=== PATIENT | male | born 2000 | race Caucasian/White ===

== ENCOUNTER 2023-10-16 17:33 | Emergency (ER) | payer BC, OTHER, SELFPAY ==
[2023-10-16 17:37] VITALS: BP 131/86; PULSE 67; RESP 18; TEMP 36.4; O2SAT 100; BMI 19.5
--- NOTE | 2023-10-16 18:35 | ED.GENADUL1 ---
HPI - General Adult General Chief complaint: Abdominal Pain Stated complaint: ABD PAIN Time Seen by Provider: 10/16/23 17:42 Source: patient Mode of arrival: walk-in Limitations: no limitations History of Present Illness HPI narrative: Patient is a 23-year-old male who is presenting to the ER with Chief concern of umbilical hernia. Patient states that his whole life, he's had diarrhea in the morning and then normal stool throughout the day. Patient states last couple weeks is been feeling a small bulge above his umbilicus. Patient is concerned about hernia. Patient has been more gassy today. Patient does have intermittent abdominal cramping. No fever or chills. Patient is concerned about possible hernia in making it worse. Patient works in a factory. Patient normally lives 15-20 pounds a day, last week a few of his shift he was lifting 40 pounds consistently. Patient does not recall a specific injury where he could've caused himself an umbilicus hernia. All systems are negative except as noted/marked. All systems reviewed and otherwise negative. Nurses note and vital signs reviewed and patient is not hypoxic. General: The patient appears well and in no apparent distress. Patient is resting comfortably on cart. Patient is not toxic, lethargic, or listless Skin: Warm, dry, no pallor noted. There is no rash noted. No petechiae, purpura. Baseline Grayishs/blackish skin from work residue. Head: Normocephalic, atraumatic Eye: Normal conjunctiva, no drainage, EOMI. PERRL Ears, Nose, Mouth, and Throat: oral mucosa is moist. Nares patent. Mouth without vesicles. Cardiovascular: Regular Rate and Rhythm, no murmur, gallop, rub Respiratory: Patient is in no distress, no accessory muscle use, lungs are clear to auscultation, no wheezing, rales or rhonchi Back: non-tender, no CVA tenderness bilaterally to percussion. No CT LS midline pain GI: Patient has no evidence of umbilical hernia at this time, patient states that it has reduced and he does not feel the umbilical hernia either. Patient was examined in a supine position. Patient has a benign abdomen, bowel sounds ?4. Otherwise no tenderness to palpation, no masses appreciated. No rebound, guarding, or rigidity noted. No distention. Patient has a benign abdomen. Musculoskeletal: Patient has full range of motion of all of the extremities, no motor, sensory, or focal neurological deficits Neurological: A&O x4, normal speech Psychiatric: Cooperative Related Data Previous Rx's Medication Instructions Recorded ondansetron 4 mg disintegrating 4 mg PO Q4H PRN nausea and 10/16/23 tablet vomiting 3 days #6 tabs Allergies Allergy/AdvReac Type Severity Reaction Status Date / Time No Known Drug Allergies Allergy Verified 10/16/23 17:37 Exam Constitutional Vital Signs, click to edit/add: Last Vital Signs Temp 97.6 F 10/16/23 17:37 Pulse 67 10/16/23 17:37 Resp 18 10/16/23 17:37 BP 131/86 10/16/23 17:37 Pulse Ox 100 10/16/23 17:37 Course Vital Signs Vital signs: Vital Signs Temperature 97.6 F 10/16/23 17:37 Pulse Rate 67 10/16/23 17:37 Respiratory Rate 18 10/16/23 17:37 Blood Pressure 131/86 10/16/23 17:37 Pulse Oximetry 100 10/16/23 17:37 Temperature 97.6 F 10/16/23 17:37 Pulse Rate 67 10/16/23 17:37 Respiratory Rate 18 10/16/23 17:37 Blood Pressure 131/86 10/16/23 17:37 Pulse Oximetry 100 10/16/23 17:37 Medical Decision Making MDM Narrative Medical decision making narrative: Education was done at bedside on the umbilical hernia, treating constipation and following up with surgeon. Patient change his story somewhat from his initial HPI and states that lately he has been having diarrhea in the morning and has felt constipated throughout the day for the past several weeks. Education was given to patient on how to treat constipation at [facility]. Patient is given signs and symptoms of umbilical hernia, he was educated on strangulation and incarceration of hernias. Patient has no hernia present at this time. Patient will follow-up with surgeon. Work restrictions were given as well. No questions at discharge. Patient has a benign abdomen at this time, bowel sounds ?4, no pain on his abdominal exam. Discharge Plan Discharge Stand Alone Forms: Work/School Release, Portal Instructions Chief Complaint: Abdominal Pain Clinical Impression: Hernia, umbilical Patient Disposition: Home, Self-Care Time of Disposition Decision: 18:34 Condition: Fair Prescriptions / Home Meds: New ondansetron 4 mg tablet,disintegrating 4 mg PO Q4H PRN (Reason: nausea and vomiting) 3 Days Qty: 6 0RF Instructions: Umbilical Hernia (ED) Additional Instructions: Work restrictions given, reduce umbilical hernia when it occurs again. For constipation, increase fluids at home, apple juice, prune juice, increase fluids. Use MiraLAX twice a day for the next 2 or 3 days to start getting soft stool. If you are having diarrhea, the watery stool is going around the hard stool, therefore constipation could be an etiology of your diarrhea Use [id number] magnesium citrate bottles, 1 or 2 bottles a day for the next 2 days to help with significant bowel prep and increased stooling. Heavy lifting, constipation will most likely make umbilical hernia worse. We have referred you to a surgeon Dr Goode to follow-up for additional therapy and care. Referrals: Marciano Goode MD [Physician] - 1 week Physician,Non-StaffMD [Primary Care Provider] - 1 week Discharge Date/Time: 10/16/23 18:53
== END 2023-10-16 18:53 | disposition home or self-care (01) ==
PROVIDERS: Emergency Provider Emergency Medicine; Family Provider Family Medicine
DX: K42.9 Umbilical hernia without obstruction or gangrene (principal)
CPT/HCPCS: 99283

== ENCOUNTER 2023-11-08 13:59 | Outpatient (OUT) | payer BC, OTHER, SELFPAY ==
[2023-11-08 15:05] LABS: Basophils Absolute Auto 0.1 10^3/uL (0.0-0.1); Basophils Percent Auto 1.2 % (0.2-2.0); Eosinophils Absolute Auto 0.4 10^3/uL (0.0-0.7); Eosinophils Percent Auto 4.1 % (0.9-7.0); Hematocrit 43.6 % (42.0-54.0); Hemoglobin 14.6 g/dL (14.0-18.0); Immature Granulocytes Abs Auto 0.02 10^3/uL (0.00-0.03); Immature Granulocytes Pct Auto 0.2 % (0.0-0.5); Lymphocytes Absolute Auto 2.9 10^3/uL (1.2-3.8); Lymphocytes Percent Auto 31.1 % (20.5-60.0); Mean Corpuscular HGB Conc 33.5 g/dL (29.9-35.2); Mean Corpuscular Hemoglobin 29.8 pg (25.9-34.0); Mean Platelet Volume 9.9 fL (9.5-13.5); Monocytes Absolute Auto 0.7 10^3/uL (0.3-0.8); Monocytes Percent Auto 7.6 % (1.7-12.0); Neutrophils Absolute Auto 5.1 10^3/uL (1.4-6.5); Neutrophils Percent Auto 55.8 % (43.0-75.0); Platelet Count 369 10^3/uL (150-450); Red Cell Distribution Width 11.6 % (11.0-15.0); White Blood Count 9.2 10^3/uL (4.0-11.0)
== END 2023-11-08 14:00 | disposition home or self-care (01) ==
LOC: PST 14:00
PROVIDERS: Family Provider Family Medicine; Visit Provider Surgery
DX: Z01.812 Encounter for preprocedural laboratory examination (principal); K42.9 Umbilical hernia without obstruction or gangrene
CPT/HCPCS: 36415; 85025

== ENCOUNTER 2023-11-11 06:50 | Outpatient (OUT) | payer BC, OTHER, SELFPAY ==
--- OUTSIDE RECORDS SUMMARY | 2023-11-11 06:53 | XMS_ITS | CCD ---
Author Organization [facility] Care Team Providers Care Foot Worker Name Role Phone Astrid Gloria Unavailable Unavailable Trausch Unavailable Unavailable Abdi Black Unavailable Unavailable Katie Hugo Unavailable Unavailable Primary Care Provider Unavailabl e Allergies Allergy Classification Reported Allergen(s) Allergy Type Date of Onset Reaction(s) Facility (3 sources) Cat Allergy to substance (disorder) [facility] Work Phone: (3 sources) Dog Allergy to substance (disorder) [facility] Work Phone: (3 sources) -No Environmental Allergies Allergy to substance (disorder) [facility] Work Phone: (3 sources) -No Known Food Allergies Allergy to substance (disorder) [facility] Work Phone: (3 sources) NO KNOWN DRUG ALLERGIES Allergy to substance (disorder) [facility] Work Phone: Medications Current Medications Medication Drug Class(es) Dates Sig (Normalized) Sig (Original) amoxicillin 500 mg oral capsule (1 source) Penicillin-class Antibacterial Start: 09-16-2023 take 500 mg by mouth three times daily Amoxicillin Active 500 MG PO Three times daily 30 September 16, 2023 12:00am cetirizine hydrochloride 10 mg oral tablet (1 source) Histamine-1 Receptor Antagonist take 1 tablet by mouth once daily as needed cetirizine (ZyrTEC) 10 mg tablet Take 1 tablet (10 mg total) by mouth daily as needed for allergies. 0 Active hydrocortisone 10 mg/ml / neomycin 3.5 mg/ml / polymyxin b 63621 unt/ml otic suspension (1 source) Aminoglycoside Antibacterial, Polymyxin-class Antibacterial, Corticosteroid Start: 09-16-2023 Neomycin-Polymyx in-Hc Active 3 DROPS OTIC Three times daily September 16, 2023 12:00am right ear Completed/Discontinued Medications Medication Drug Class(es) Dates Sig (Normalized) Sig (Original) dexamethasone 1 mg/ml / neomycin 3.5 mg/ml / polymyxin b 79351 unt/ml ophthalmic suspension (2 sources) Aminoglycoside Antibacterial, Polymyxin-class Antibacterial, Corticosteroid Start: 01-15-2018 take 1 drop(s) into the eye(s) every four hours neomycin-polymyx in B-dexameth 3.5mg/mL-10,000 unit/mL-0.1 % ophthalmic (eye) drops,suspension 01/15/2018 instill 1 drop into both eyes by ophthalmic route every 4 hours Start: 01-15-2018 take 1 drop(s) into the eye(s) every four hours neomycin-polymyxin B-dexameth 3.5mg/mL-10,000 unit/mL-0.1 % ophthalmic (eye) drops,suspension 01/15/2018 instill 1 drop into both eyes by ophthalmic route every 4 hours FLUoxetine 20 mg oral capsule (3 sources) Serotonin Reuptake Inhibitor Start: 10-09-2017 End: 01-15-2018 take 1 capsule by mouth once daily fluoxetine 20 mg oral capsule 10/09/2017 01/15/2018 take 1 capsule (20 mg) by oral route once daily fluticasone propionate 0.05 mg/actuat metered dose nasal spray (3 sources) Corticosteroid Start: 08-23-2017 fluticasone 50 mcg/actuation nasal spray,suspension 08/23/2017 spray 1 spray (50 mcg) in each nostril by intranasal route once daily Problems Problem Classification Problem Date Documented Date Episodic/Chronic Abdominal hernia (1 source) Umbilical hernia; Translations: [Umbilical hernia without obstruction or gangrene] 10-30-2023 Episodic Anxiety disorders (3 sources) Generalized anxiety disorder; Translations: [VANGIE (generalized anxiety disorder)] Chronic Immunizations and screening for infectious disease (2 sources) Contact with and (suspected) exposure to other viral communicable diseases; Translations: [Contact with and (suspected) exposure to other viral communicable diseases] Episodic Influenza (1 source) Influenza due to other identified influenza virus with other respiratory manifestations Episodic Open wounds of extremities (1 source) Laceration with foreign body of left hand, initial encounter; Translations: [Laceration with foreign body of left hand, initial encounter] Onset: 07-20-2018 Episodic Other ear and sense organ disorders (1 source) Otitis externa; Translations: [Unspecified otitis externa, right ear] 09-16-2023 Chronic Other ear and sense organ disorders (1 source) Unspecified otitis externa, right ear; Translations: [Infective otitis externa, unspecified] 09-16-2023 Chronic Other ear and sense organ disorders (1 source) Impacted cerumen; Translations: [Impacted cerumen, right ear] 09-16-2023 Episodic Other ear and sense organ disorders (1 source) Impacted cerumen, right ear; Translations: [Impacted cerumen] 09-16-2023 Episodic Otitis media and related conditions (2 sources) Otitis media of right ear; Translations: [Otitis media, unspecified, right ear] 09-16-2023 Episodic Substance-related disorders (1 source) Cannabis misuse; Translations: [Cannabis use, unspecified, uncomplicated] 10-30-2023 Episodic Results Test Name Value Interpretation Reference Range Facil ity COVID/FLU RT-PCRon SARS-CoV-2 (COVID-19) RNA NENO+probe Ql (Unsp spec) Negative [facility] Other COVID/FLU RT-PCR Positive [facility] Other COVID/FLU RT-PCR Negative [facility] Other Otheron 01-15-2018 0= N/A Invalid Interpretation Code [facility] 0=No Invalid Interpretation Code [facility] 0-N/A Invalid Interpretation Code [facility] 1=Controlled Invalid Interpretation Code [facility] reducing depressed mood Invalid Interpretation Code [facility] 0 Invalid Interpretation Code [facility] 1 Invalid Interpretation Code [facility] Risk Level 1=3 or < Invalid Interpretation Code [facility] Otheron 10-09-2017 1 Invalid Interpretation Code [facility] Vital Signs Date Time Vital Sign Value Performing Clinician Facility 10-30-2023 09:25-0400 Body height 172.7 cm Justin Nogueiradewayne STONE Work Phone: [facility] 10-30-2023 09:25-0400 Body mass index (BMI) [Ratio] 19.55 kg/m2 Justin Jerodewayne STONE Work Phone: [facility] 10-30-2023 09:25-0400 Body weight 58.33 kg Justin Coreas DO Work Phone: [facility] 10-30-2023 09:25-0400 Diastolic blood pressure 77 mm[Hg] Justin Russel STONE Work Phone: [facility] 10-30-2023 09:25-0400 Heart rate 78 /min Justin Jeroleeannenavdeep Work Phone: [facility] 10-30-2023 09:25-0400 Systolic blood pressure 116 mm[Hg] Justin Coreas DO Work Phone: [facility] 09-16-2023 10:54-0500 Body height 172.72 cm [facility] 09-16-2023 10:54-0500 Body mass index (BMI) [Ratio] 20.5 kg/m2 [facility] 09-16-2023 10:54-0500 Body temperature 97.3 [degF] [facility] 09-16-2023 10:54-0500 Body weight 61.23 kg [facility] 09-16-2023 10:54-0500 Heart rate 68 /min [facility] 09-16-2023 10:54-0500 Respiratory rate 18 /min [facility] 09-16-2023 10:54-0500 SaO2% (BldA) [Mass fraction] 99 % [facility] 07-18-2022 14:45-0500 Body height 175.26 cm Katie Hugo Other [facility] Other 07-18-2022 14:45-0500 Body mass index (BMI) [Ratio] 19.2 kg/m2 Katie Hugo Other [facility] Other 07-18-2022 14:45-0500 Body temperature 99.7 [degF] Katie Garciamond Other [facility] Other 07-18-2022 14:45-0500 Body weight 58.97 kg Katie Hugo Other [facility] Other 07-18-2022 14:45-0500 Diastolic blood pressure 56 mm[Hg] Katie Hugo Other [facility] Other 07-18-2022 14:45-0500 Respiratory rate 20 /min Katie Hugo Other [facility] Other 07-18-2022 14:45-0500 SaO2% (BldA) [Mass fraction] 99 % Katie Hugo Other [facility] Other 07-18-2022 14:45-0500 Systolic blood pressure 95 mm[Hg] Katie Garciamond Other [facility] Other 01-15-2018 10:06-0400 BMI (Body Mass Index) 20.01 kg/m2 [facility] 01-15-2018 10:06-0400 Body Temperature 98.7 [degF] [facility] 01-15-2018 10:06-0400 BP Diastolic 84 mm[Hg] Astrid StayTuned [facility] 01-15-2018 10:06-0400 BP Systolic 124 mm[Hg] [facility] 01-15-[facility] 10:06-0400 BSA (Body Surface Area) 1.[address] [facility] 01-15-2018 10:06-0400 Height 180.[address] [facility] 01-15-2018 10:06-0400 Pulse (Heart Rate) 110 /min Astrid [facility] 01-15-2018 10:06-0400 Pulse Oximetry 99 % Astrid [facility] 01-15-2018 10:06-0400 Respiratory Rate 18 /min [facility] 01-15-2018 10:06-0400 [address] 65[address] [facility] 10-09-2017 10:10-0400 BMI (Body Mass Index) 19.11 kg/m2 Astrid [facility] 10-09-2017 10:10-0400 Body Temperature 98.3 [degF] Astrid [facility] 10-09-2017 10:10-0400 BP Diastolic 68 mm[Hg] [facility] 10-09-2017 10:10-0400 BP Systolic 110 mm[Hg] [facility] 10-09-2017 10:10-0400 BSA (Body Surface Area) 1.[address] [facility] 10-09-2017 10:10-0400 Height 180.[address] [facility] 10-09-2017 10:10-0400 Pulse (Heart Rate) 82 /min [facility] 10-09-2017 10:10-0400 Pulse Oximetry 98 % Astrid Gloria [facility] 10-09-2017 10:10-0400 Respiratory Rate 18 /min Astrid Gloria [facility] 10-09-2017 10:10-0400 Weight 62.14 kg Astridgordon Gloria [facility] 09-06-2017 09:02-0500 BMI (Body Mass Index) 18.69 kg/m2 Astridgordon Gloria [facility] 09-06-2017 09:02-0500 Body Temperature 99.4 [degF] Astrid Gloria [facility] 09-06-2017 09:02-0500 BP Diastolic 88 mm[Hg] [facility] 09-06-2017 09:02-0500 BP Systolic 138 mm[Hg] Astridgordon Gloria [facility] 09-06-2017 09:02-0500 BSA (Body Surface Area) 1.74 m2 Astridgordon Gloria [facility] 09-06-2017 09:02-0500 Height 180.34 cm Astridgordon Gloria [facility] 09-06-2017 09:02-0500 Pulse (Heart Rate) 118 /min Astrid Golria [facility] 09-06-2017 09:02-0500 Pulse Oximetry 95 % Astrid Gloria [facility] 09-06-2017 09:02-0500 Respiratory Rate 20 /min Astrid Glorai [facility] 09-06-2017 09:02-0500 Weight 60.78 kg Astridgordon Gloria [facility] 08-23-2017 09:52-0500 BMI (Body Mass Index) 19.44 kg/m2 [facility] 08-23-2017 09:52-0500 Body Temperature 98.8 [degF] [facility] 08-23-2017 09:52-0500 BP Diastolic 86 mm[Hg] [facility] 08-23-2017 09:52-0500 BP Systolic 123 mm[Hg] [facility] 08-23-2017 09:52-0500 BSA (Body Surface Area) 1.78 m2 [facility] 08-23-2017 09:52-0500 Height 180.34 cm [facility] 08-23-2017 09:52-0500 Pulse (Heart Rate) 89 /min [facility] 08-23-2017 09:52-0500 Pulse Oximetry 99 % [facility] 08-23-2017 09:52-0500 Respiratory Rate 20 /min [facility] 08-23-2017 09:52-0500 Weight 63.22 kg [facility] Encounters Encounter Date Encounter Type Care Provider Facility Start: 10-30-2023 End: 10-30-2023 Office outpatient new 45 minutes Justin Coreas DO Work Phone: [facility] Comment on above: Umbilical hernia wit hout obstruction and without gangrene (Primary Dx); Cannabis use, uncomplicated Start: 09-16-2023 End: 09-16-2023 ambulatory [facility] Work Phone: Start: 09-16-2023 End: 09-16-2023 Patient encounter procedure [facility] Work Phone: Start: 07-18-2022 End: 07-18-2022 ambulatory Katie Garciamond Other [facility] [employer] Other Start: 07-18-2022 Office outpatient vi sit 15 minutes Katie Hugo [facility] Start: 07-20-2018 End: 07-20-2018 Emergency department patient visit [facility] Start: 01-15-2018 Behavioral Health Astrid mccain Other [facility] Start: 01-15-2018 Medical Abdi Black Other [facility] Start: 01-15-2018 Office outpatient vi sit 15 minutes Abdi Black Other [facility] Start: 10-09-2017 Behavioral Health Norm dupree Other [facility] Start: 10-09-2017 Office outpatient vi sit 15 minutes Abdi Black Other [facility] Start: 09-06-2017 Behavioral Health Norm dupree Other [facility] Start: 09-06-2017 Office outpatient vi sit 15 minutes Abdi Black Other [facility] Start: 08-23-2017 Behavioral Health Norm dupree Other [facility] Start: 08-23-2017 Office outpatient vi sit 15 minutes Abdi Black Other [facility] Procedures Date Procedure Procedure Detail Performing Clinician Start: 07-20-2018 LACERATION REPAIR Start: 01-15-2018 PHQ9 Administered Radha Hummelabeba Start: 01-15-2018 Psychotherapy w/joana ent 30 minutes Astrid Maziers Start: 01-15-2018 SBIRT Negative Astrid M jefferyabeba Start: 10-09-2017 Psychotherapy w/joana ent 30 minutes Astrid Maziers Start: 10-09-2017 Pt-focused hlth risk assmt score doc stnd instrm Astrid Shaheediers Start: 09-06-2017 Psychotherapy w/joana ent 30 minutes Astrid Maziers Start: 08-23-2017 Psychotherapy w/joana ent 30 minutes Astrid Gloria Start: 08-23-2017 End: 08-23-2017 PHQ9 Administered Astrid Gloria Start: 08-23-2017 End: 08-23-2017 RAYOSEF Gloria Plan of Treatment Date Care Activity Detail Author Start: 10-29-2024 Adult BMI Screening Adult BMI Screen ing [facility] Start: 10-29-2024 Tobacco Screening Tobacco Screening [facility] Start: 03-31-2024 Influenza vaccination Influenza Vacc ine [facility] Start: 10-30-2023 End: 10-29-2024 CT Abdomen and Pelvis W contrast IV CT abdomen and pelvis with contrast Imaging Routine Umbilical hernia without obstruction and without gangrene Expected: 10/30/2023, Expires: 10/29/2024 [facility] Comment on above: Expected: 10/30/2023 , Expires: 10/29/2024 Start: 2018 DTaP,Tdap and Td Vaccines (1 - Tdap) DTaP,Tdap and Td Vaccines (1 - Tdap) [facility] Start: 2011 Depression Screening Depression Scre ening [facility] End: 10-29-2024 CBC panel - Blood by Automated count CBC without diff Lab Routine Umbilical hernia without obstruction and without gangrene 1 Occurrences starting 10/30/2023 until 10/29/2024 [facility] Comment on above: 1 Occurrences starti ng 10/30/2023 until 10/29/2024 End: 10-29-2024 Unlisted [facility] Procedure Unlisted [facility] Procedure Procedures Routine Umbilical hernia without obstruction and without gangrene 1 Occurrences starting 10/30/2023 until 10/29/2024 [facility] Work Phone: Comment on above: 1 Occurrences starti ng 10/30/2023 until 10/29/2024 Payers Date Payer Category Payer Private Health Insurance [facility] PLUS [id number] 2023-[facility] [phone] [address] [address] [place] [address] [id number] 2023 Unknown [place]/TRUST [id number] 2023-Present [phone] [address] [place] [address] [id number] 2017 Unknown [id number] Private Health Insurance [id number] Social History Date Type Detail Facility [facility] Start: Never smoker Health [facility] Start: 10-30-2023 Sex Assigned At N [facility] [employer] Other Start: 1999 Sex Assigned At Male F [facility] Start: 10-30-2023 Tobacco use and exposure Smokeless tobacco non-user [facility] Start: 10-30-2023 Alcohol intake Ex-drinker (finding) [facility] Start: 10-30-2023 History of Social function [facility] Within the past 12 months we worried whether our food would run out before we got money to buy more. Never True [facility] Start: 1999 Sex Assigned At Not on file P [facility] History of Present illness Narrative 10-30-2023 Justin Coreas, DO - 10/30/2023 9:30 AM EDT Note Date & Type Note Facility 10-30-2023 History of Present illness Narrative Images from the original note were not included. [facility] [id number] [facility] [id number] CONSULT NOTE Erwin Vega 23 y.o. CHIEF COMPLAINT Chief Complaint Patient presents with Hernia Umbilical hernia, [facility] ER 10/16/23 Erwin Vega is a 23-year-old male who presents to the office with complaints of an umbilical hernia diagnosed when he went to the ED at the [facility] on October 15. 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 He has to lift parts onto a machine and he usually lifts 15-20 lb but that day he was lifting up to 40 lb. He complains of occasional nausea and 1 episode of emesis. His pain has been worse after coughing therefore he quit smoking weed 2 weeks ago due to the pain. Usually he smokes weed daily. He has been on light duty since that time. He denies any medical problems. MEDICATION Current Outpatient Medications: cetirizine (ZyrTEC) 10 mg tablet, Take 1 tablet (10 mg total) by mouth daily as needed for allergies., Disp: , Rfl: ALLERGY No Known Allergies MEDICAL HISTORY Past Medical History: Diagnosis Date Generalized anxiety disorder SURGICAL HISTORY Past Surgical History: Procedure Laterality Date ROOT CANAL Right 2022 SOCIAL HISTORY Social History Socioeconomic History Marital status: Single Spouse name: Not on file Number of children: Not on file Years of education: Not on file Highest education level: Not on file Occupational History Not on file Tobacco Use Smoking status: Never Smokeless tobacco: Never Vaping Use Vaping Use: Never used Substance and Sexual Activity Alcohol use: Not Currently Drug use: Not Currently Types: Marijuana Sexual activity: Defer Other Topics Concern Not on file Social History Narrative Not on file Social Determinants of Health Financial Resource Strain: Not on file Food Insecurity: Unknown (10/30/2023) Hunger Screening Food Insecurity - Worry: Never True Food Insecurity - Inability: Not on file Transportation Needs: Not on file Physical Activity: Not on file Stress: Not on file Social Connections: Not on file Interpersonal Safety: Not on file Housing Instability: Not on file FAMILY HISTORY Family History Problem Relation Age of Onset No Known Problems Mother No Known Problems Father REVIEW OF SYSTEMS: Constitutional: Denies fevers, denies recent illnesses. Eyes: Denies any vision changes. ENT: Denies any throat pain. Neck: Denies any neck pain. Cardiovascular denies chest pain. Denies palpitations. Respiratory: Denies shortness of breath, denies cough, denies history of asthma or any other pulmonary illnesses. Gastrointestinal: Negative for abdominal pain, nausea, melena, hematochezia, weight loss, change in bowel habits or weight loss or emesis. Genitourinary negative for dysuria hematuria urinary frequency or urgency. Musculoskeletal: Negative for extremity pains or joint discomfort. Neurologic: No change in sensation or paresthesias or history of seizure disorder skin: No rashes. Hematologic: No anemia. No purpura. No petechiae and no prolonged or excessive bleeding Allergic and immunologic: No pruritus. No swelling. Endocrine: No unexplained weight loss. No polydipsia. No polyuria. No polyphagia. PHYSICAL EXAM Constitutional: He is oriented to person, place, and time. Vital signs are normal. He appears well-developed and well-nourished. HEENT: Head: Normocephalic and atraumatic. Eyes: Conjunctivae, EOM and lids are normal. Neck: Trachea normal. Neck supple. No thyroid mass present. Cardiovascular: Normal rate and regular rhythm. Pulmonary/Chest: Effort normal and breath sounds normal. Abdominal: Soft. Small bulge at the umbilicus and above which reduces. He exhibits no distension and no mass. There is negative Hanna's sign. Musculoskeletal: Normal range of motion. Lymphadenopathy: He has no cervical adenopathy. He has no axillary adenopathy. Right: No inguinal and no supraclavicular adenopathy present. Left: No inguinal and no supraclavicular adenopathy present. Neurological: He is alert and oriented to person, place, and time. Skin: Skin is warm, dry and intact. Psychiatric: He has a normal mood and affect. His speech is normal and behavior is normal. Cognition and memory are normal. IMPRESSION 1. Umbilical hernia less than 1 cm without incarceration or gangrene 2. History of cannabis use daily which he quit 2 weeks ago due to coughing irritating the hernia. ASSESSMENT & PLAN Robotic umbilical hernia repair with mesh. Risks benefits alternatives to surgery may include infection, bleeding, bowel injury, blood clots to legs or lungs, recurrence of the hernia, pneumonia, heart attack, stroke and/or . He understood all the above and wished to proceed. He was encouraged to continue not smoking marijuana until has recovered from surgery and recovery could take 6 weeks. He would not be allowed to do lifting greater than 5 lb for 6 weeks but could go back to light duty after 2 weeks. He voiced understanding of all the above. Evaluation included: Preparing to see the patient (e.g., review of tests) Obtaining and/or reviewing separately obtained history Performing a medically appropriate examination and/or evaluation Counseling and educating the patient/family/caregiver Referring and communicating with other health healthcare interpreter Umbilical hernia without obstruction and without gangrene [K42.9] Justin Coreas DO This note was created with the assistance of a speech recognition program. While intending to generate a timely document that accurately reflects the content of the visit, no guarantee can be provided that every grammatical or spelling mistake has been or will be identified or corrected. Thank you for your understanding. documented in this encounter [facility] Note 10-30-2023 Addendum Note - Justni Coreas DO - 10/30/2023 9:30 AM EDT Note Date & Type Note Facility 10-30-2023 Miscellaneous Notes Addended by: JUSTIN COREAS on: 10/30/2023 12:51 PM Modules accepted: Orders documented in this encounter [facility] Clinical Note 10-30-2023 Addendum Note - Justin Coreas DO - 10/30/2023 9:30 AM EDT Note Date & Type Note Facility 10-30-2023 Note Addended by: JUSTIN COREAS on: 10/30/2023 12:51 PM Modules accepted: Orders [facility] Evaluation note 07-18-2022 Note Date & Type Note Facility 07-18-2022 Evaluation note Encounter Date Diagnosis Assessment Notes Jun, Contact with and (suspected) exposure to other viral communicable diseases (ICD-10 - Z20.828) Jun, Influenza A (ICD-10 - J10.1) Influenza: adult home care material was printed Drink plenty fluids, get plenty of rest. Take Tylenol or Motrin as needed for aches pains or fevers. Follow-up with your family physician if no improvement in 2 to 3 days. Should quarantine for 1 week after the onset of your symptoms of influenza. [facility] Other Evaluation note Note Date & Type Note Facility Evaluation note Diagnosis Onset Date Impacted cerumen, right ear acute Right otitis externa acute Right otitis media acute [facility] Work Phone: Evaluation note Note Date & Type Note Facility Evaluation note Diagnosis Umbilical hernia without obstruction and without gangrene- Primary Cannabis use, uncomplicated documented in this encounter [facility] History general Narrative - Reported Note Date & Type Note Facility History general Narrative - Reported Type Medical History anxiety [facility] Other Instructions Note Date & Type Note Facility Instructions Not on filedocumented in this en counter [facility] History of Past Illness Name Date of Onset Comments VANGIE (generalized anxiety disorder) Normal weight, pediatric, BM I 5th to 84th percentile for age Aug 23 2017 9:00AM Sinus pressure Aug 23 2017 9:00AM MDD (major depressive disorder) Aug 23 2017 9:00 AM Generalized anxiety disorder Aug 23 2017 9:41AM Persistent depressive disorder Aug 23 2017 9:41A M Normal weight, pediatric, BM I 5th to 84th percentile for age Sep 06 2017 8:08AM VANGIE (generalized anxiety disorder) Sep 06 2017 8: 08AM Persistent depressive disorder Sep 06 2017 8:39AM Generalized anxiety disorder Sep 06 2017 8:39AM Screening for diabetes mellitus Oct 09 2017 8:23 AM Normal weight, pediatric, BM I 5th to 84th percentile for age Oct 09 2017 8:23AM MDD (major depressive disorder) Oct 09 2017 8:23 AM Persistent depressive disorder Oct 09 2017 8:44A M Generalized anxiety disorder Oct 09 2017 8:44AM Name Date of Onset Comments VANGIE (generalized anxiety disorder) Normal weight, pediatric, BM I 5th to 84th percentile for age Aug 23 2017 9:00AM Sinus pressure Aug 23 2017 9:00AM MDD (major depressive disorder) Aug 23 2017 9:00 AM Generalized anxiety disorder Aug 23 2017 9:41AM Persistent depressive disorder Aug 23 2017 9:41A M Normal weight, pediatric, BM I 5th to 84th percentile for age Sep 06 2017 8:08AM VANGIE (generalized anxiety disorder) Sep 06 2017 8: 08AM Persistent depressive disorder Sep 06 2017 8:39AM Generalized anxiety disorder Sep 06 2017 8:39AM Screening for diabetes mellitus Oct 09 2017 8:23 AM Normal weight, pediatric, BM I 5th to 84th percentile for age Oct 09 2017 8:23AM MDD (major depressive disorder) Oct 09 2017 8:23 AM Persistent depressive disorder Oct 09 2017 8:44A M Generalized anxiety disorder Oct 09 2017 8:44AM Normal weight, pediatric, BM I 5th to 84th percentile for age Jan 15 2018 8:11AM Blepharitis Jan 15 2018 8:11AM VANGIE (generalized anxiety disorder) Jan 15 2018 8 :11AM Adjustment disorder with mixed anxiety and depre ssed mood Jan 15 2018 8:36AM Name Date of Onset Comments VANGIE (generalized anxiety disorder) Normal weight, pediatric, BM I 5th to 84th percentile for age Aug 23 2017 9:00AM Sinus pressure Aug 23 2017 9:00AM MDD (major depressive disorder) Aug 23 2017 9:00 AM Generalized anxiety disorder Aug 23 2017 9:41AM Persistent depressive disorder Aug 23 2017 9:41A M Normal weight, pediatric, BM I 5th to 84th percentile for age Sep 06 2017 8:08AM VANGIE (generalized anxiety disorder) Sep 06 2017 8: 08AM Persistent depressive disorder Sep 06 2017 8:39AM Generalized anxiety disorder Sep 06 2017 8:39AM Screening for diabetes mellitus Oct 09 2017 8:23 AM Normal weight, pediatric, BM I 5th to 84th percentile for age Oct 09 2017 8:23AM MDD (major depressive disorder) Oct 09 2017 8:23 AM Persistent depressive disorder Oct 09 2017 8:44A M Generalized anxiety disorder Oct 09 2017 8:44AM Normal weight, pediatric, BM I 5th to 84th percentile for age Jan 15 2018 8:11AM Blepharitis Jan 15 2018 8:11AM VANGIE (generalized anxiety disorder) Jan 15 2018 8 :11AM Summary Purpose Family History No Family History Records Found Advance Directives Advance Directive Response Recorded Date/ Time Advance Directives No August 10:47am Chief Complaint and Reason for Visit Chief Complaint Earache Reason for Visit Impacted cerumen, ri ght ear Right otitis externa Right otitis media Reason for Referral Specialty Diagnoses / Procedures Referred By Contac t Referred To Contact Diagnoses Umbilical hernia without obstruction and without gangrene Procedures CT abdomen and pelvis with contrast Justin Coreas, DO [address] [place] [address] Referral ID Status Reason Start Date Expiration Date V isits Requested Visits Authorized [id number] Pending Review 10/30/2023 10/29/2024 1 1 Specialty Diagnoses / Procedures Referred By Contac t Referred To Contact Diagnoses Umbilical hernia without obstruction and without gangrene Procedures Unlisted [facility] Procedure Justin Coreas, DO [address] [place] [address] Referral ID Status Reason Start Date Expiration Date V isits Requested Visits Authorized [id number] Pending Review 10/30/2023 10/29/2024 1 1 Additional Source Comments (unrecognized sect ion and content) No Status Records Found INFORMATION SOURCE (unrecogn ized section and content) DATE CREATED AUTHOR 07/24/2018 Sophia Maciaslynda Chen pital REASON FOR VISIT (unrecogniz ed section and content) Reason Comments Hernia Umbilical hernia, [facility] ER 10/16/23 Care Teams (unrecognized sec tion and content) Team Status: Active Member Role Status Dates PHYSICIAN NO FAMILY Primary Care Provider Active Team Status: Inactive Member Role Status Dates PHYSICIAN NO FAMILY Primary Care Provider Active Start: September 16, 2023 End: September 16, 2023 KENNY Ramires Attending Provider Active S tart: September 16, 2023 End: September 16, 2023 Goals (unrecognized section and content) Goals may be documented in a n alternate section FOR RECORDS PERTAINING TO PATIENTS WHO ARE OR HAVE BEEN ENROLLED IN A CHEMICAL DEPENDENCY/SUBSTANCEABUSE PROGRAM, SOME INFORMATION MAY BE OMITTED. This clinical summary was aggregated from multiple sources. Caution should be exercised in using it in the provision of clinical care. This summary normalizes information from multiple sources, and as a consequence, information in this document may materially change the coding, format and clinical context of patient data. In addition, data may be omitted in some cases. CLINICAL DECISIONS SHOULD BE BASED ON THE PRIMARY CLINICAL RECORDS. [email or web address] provides no warranty or guarantee of the accuracy or completeness of information in this document.
--- NOTE | 2023-11-11 07:05 | CT_ITS ---
[address] [address] Patient Name: VINAYAK AUSTIN MRN: [id number] date: 2000 Sex: M Assigned Patient Location: [facility] Current Patient Location: Accession/Order Number: [id number] Exam Date: 11/11/2023 08:08 Report Date: 11/13/2023 07:44 At the request of: JUSTIN COREAS Procedure: CT abdomen pelvis w con EXAMINATION: CT abdomen pelvis w con HISTORY: RULE OUT UMBILICAL HERNIA, ABDOMINAL PAIN, ACUTE COMPARISON: No relevant comparison available. TECHNIQUE: CT images were created with IV contrast. Axial, Coronal, and Sagittal images. Dose reduction techniques were achieved by using automated exposure control and/or adjustment of mA and/or kV according to patient size and/or use of iterative reconstruction technique. FINDINGS: LUNG BASES: No visible pulmonary or pleural disease. LIVER: No enlargement, atrophy, abnormal density, or significant focal lesion. BILIARY: No visible dilatation or calcification. PANCREAS: No lesion, fluid collection, ductal dilatation, or atrophy. SPLEEN: No enlargement or focal lesion. ADRENALS: No mass or enlargement. KIDNEYS: No mass, obstruction, or calcification. BOWEL/MESENTERY: Suture line gastric antrum. Nonobstructive bowel gas pattern AORTA/VASCULAR: No aneurysm or dissection. RETROPERITONEUM: No mass or adenopathy. LYMPH NODES: No adenopathy. URINARY BLADDER: Marked fluid distention of the urinary bladder PELVIC ORGANS: No visible mass. Pelvic organs appropriate for patient age. ABDOMINAL WALL: 2.2 x 0.8 cm ventral hernia containing mesenteric fat corresponding to the patient's palpable abnormality just above the level of the umbilicus BONES: No bony lesion or fracture. OTHER: Negative. CT/CT abdomen pelvis w con IMPRESSION: 2.2 cm periumbilical ventral hernia containing mesenteric fat corresponding to the patient's palpable abnormality Electronically authenticated by: LEANN ELIZABETH Date: 11/13/2023 07:44
== END 2023-11-11 06:51 | disposition home or self-care (01) ==
LOC: CT 06:51
PROVIDERS: Family Provider Family Medicine; Visit Provider Surgery
DX: K42.9 Umbilical hernia without obstruction or gangrene (principal)
CPT/HCPCS: 74177; Q9967

== ENCOUNTER 2023-11-15 06:02 | Day surgery (SDC) | payer BC, OTHER, SELFPAY ==
[2023-11-08 14:50] VITALS: BP 126/83; PULSE 80; TEMP 36.3; O2SAT 99; BMI 19.0
[2023-11-15] VITALS (9 sets, daily range): BP systolic 107–125; BP diastolic 67–85; PULSE 70–98; TEMP 36.3–36.6; O2SAT 99–100; BMI 19.1
--- OUTSIDE RECORDS SUMMARY | 2023-11-15 06:05 | XMS_ITS | CCD ---
Author Organization [facility] Care Team Providers Care Access Representative Name Role Phone Astrid Gloria Unavailable Unavailable Trausch Unavailable Unavailable Abdi Black Unavailable Unavailable Katie Hugo Unavailable Unavailable Primary Care Provider Unavailabl e Allergies Allergy Classification Reported Allergen(s) Allergy Type Date of Onset Reaction(s) Facility (3 sources) Cat Allergy to substance (disorder) [facility] Work Phone: (3 sources) Dog Allergy to substance (disorder) [facility] Work Phone: (3 sources) -No Environmental Allergies Allergy to substance (disorder) [facility] Work Phone: (3 sources) -No Known Food Allergies Allergy to substance (disorder) [facility] Work Phone: (3 sources) NO KNOWN DRUG ALLERGIES Allergy to substance (disorder) [facility] Work Phone: Medications Current Medications Medication [...] / neomycin 3.5 mg/ml / polymyxin b 42907 unt/ml otic suspension (1 source) Aminoglycoside Antibacterial, Polymyxin-class Antibacterial, Corticosteroid Start: 09-16-2023 Neomycin-Polymyx in-Hc Active 3 DROPS OTIC Three times daily September 16, 2023 12:00am right ear Completed/Discontinued Medications Medication Drug Class(es) Dates Sig (Normalized) Sig (Original) dexamethasone 1 mg/ml / neomycin 3.5 mg/ml / polymyxin b 38282 unt/ml ophthalmic suspension (2 sources) Aminoglycoside Antibacterial, [...] (COVID-19) RNA NENO+probe Ql (Unsp spec) Negative [email or web address] Other COVID/FLU RT-PCR Positive [email or web address] Other COVID/FLU RT-PCR Negative [email or web address] Other Otheron 01-15-2018 0= N/A Invalid Interpretation Code [employer] [facility] 0=No Invalid Interpretation Code [employer] [facility] 0-N/A Invalid Interpretation Code [employer] [facility] 1=Controlled Invalid Interpretation Code [employer] [facility] reducing depressed mood Invalid Interpretation Code [employer] [facility] 0 Invalid Interpretation Code [employer] [facility] 1 Invalid Interpretation Code [employer] [facility] Risk Level 1=3 or < Invalid Interpretation Code [employer] [facility] Otheron 10-09-2017 1 Invalid Interpretation Code [facility] Vital Signs Date Time Vital Sign Value Performing Clinician Facility 10-30-2023 09:25-0400 Body height 172.7 cm Justin Nogueiradewayne STONE Work Phone: [facility] [employer] [facility] 10-30-2023 09:25-0400 Body mass index (BMI) [Ratio] 19.55 kg/m2 Justin Jerodewayne STONE Work Phone: [facility] [employer] [facility] 10-30-2023 09:25-0400 Body weight 58.33 kg Justin Coreas DO Work Phone: [facility] 10-30-2023 09:25-0400 Diastolic blood pressure 77 mm[Hg] Justin Russel STONE Work Phone: [facility] 10-30-2023 09:25-0400 Heart rate 78 /min Justin Jeroleeannenavdeep Work Phone: [facility] 10-30-2023 09:25-0400 Systolic blood pressure 116 mm[Hg] Justin Coreas DO Work Phone: [facility] 09-16-2023 10:54-0500 Body height 172.72 cm [facility] 09-16-2023 10:54-0500 Body mass index (BMI) [Ratio] 20.5 kg/m2 [facility] 09-16-2023 10:54-0500 Body temperature 97.3 [degF] [facility] 09-16-2023 10:54-0500 Body weight 61.23 kg [facility] 09-16-2023 10:54-0500 Heart rate 68 /min [facility] 09-16-2023 10:54-0500 Respiratory rate 18 /min [facility] 09-16-2023 10:54-0500 SaO2% (BldA) [Mass fraction] 99 % [facility] 07-18-2022 14:45-0500 Body height 175.26 cm Katie Hugo Other [email or web address] Other 07-18-2022 14:45-0500 Body mass index (BMI) [Ratio] 19.2 kg/m2 Katie Hugo Other [email or web address] Other 07-18-2022 14:45-0500 Body temperature 99.7 [degF] Katie Garciamond Other [email or web address] Other 07-18-2022 14:45-0500 Body weight 58.97 kg Katie Hugo Other [email or web address] Other 07-18-2022 14:45-0500 Diastolic blood pressure 56 mm[Hg] Katie Hugo Other [email or web address] Other 07-18-2022 14:45-0500 Respiratory rate 20 /min Katie Hugo Other [email or web address] Other 07-18-2022 14:45-0500 SaO2% (BldA) [Mass fraction] 99 % Katie Hugo Other [email or web address] Other 07-18-2022 14:45-0500 Systolic blood pressure 95 mm[Hg] Katie Garciamond Other [email or web address] Other 01-15-2018 10:06-0400 BMI (Body Mass Index) 20.01 kg/m2 [facility] 01-15-2018 10:06-0400 Body Temperature 98.7 [degF] [facility] 01-15-2018 10:06-0400 BP Diastolic 84 mm[Hg] Astrid uberall [facility] 01-15-2018 10:06-0400 BP Systolic 124 mm[Hg] [facility] 01-15-2018 10:06-0400 BSA (Body Surface Area) 1.81 m2 Astrid [facility] 01-15-2018 10:06-0400 Height 180.34 cm Astrid [facility] 01-15-2018 10:06-0400 Pulse (Heart Rate) 110 /min Astrid [facility] 01-15-2018 10:06-0400 Pulse Oximetry 99 % Astrid [facility] 01-15-2018 10:06-0400 Respiratory Rate 18 /min [facility] 01-15-2018 10:06-0400 Weight 65.09 kg Astrid [facility] 10-09-2017 10:10-0400 BMI (Body Mass Index) 19.11 kg/m2 Astrid [facility] 10-09-2017 10:10-0400 Body Temperature 98.3 [degF] Astrid [facility] 10-09-2017 10:10-0400 BP Diastolic 68 mm[Hg] [facility] 10-09-2017 10:10-0400 BP Systolic 110 mm[Hg] [facility] 10-09-2017 10:10-0400 BSA (Body Surface Area) 1.76 m2 Astrid [facility] 10-09-2017 10:10-0400 Height 180.34 cm Astrid [facility] 10-09-2017 10:10-0400 Pulse (Heart Rate) 82 /min [facility] 10-09-2017 10:10-0400 Pulse Oximetry 98 % Astrid Gloria [facility] 10-09-2017 10:10-0400 Respiratory Rate 18 /min Astrid Gloria [facility] 10-09-2017 10:10-0400 Weight 62.14 kg Astridgordon Gloria [facility] 09-06-2017 09:02-0500 BMI (Body Mass Index) 18.69 kg/m2 Astridgordon Gloria [facility] 09-06-2017 09:02-0500 Body Temperature 99.4 [degF] Astrid Gloria [facility] 09-06-2017 09:02-0500 BP Diastolic 88 mm[Hg] [facility] 09-06-2017 09:02-0500 BP Systolic 138 mm[Hg] Astridgordon Gloria [facility] 09-06-2017 09:02-0500 BSA (Body Surface Area) 1.74 m2 Astridgordon Gloria [facility] 09-06-2017 09:02-0500 Height 180.34 cm Astridgordon Gloria [facility] 09-06-2017 09:02-0500 Pulse (Heart Rate) 118 /min Astrid Gloria [facility] 09-06-2017 09:02-0500 Pulse Oximetry 95 % Astrid Gloria [facility] 09-06-2017 09:02-0500 Respiratory Rate 20 /min Astrid Gloria [facility] 09-06-2017 09:02-0500 Weight 60.78 kg Astridgordon Gloria [facility] 08-23-2017 09:52-0500 BMI (Body Mass Index) 19.44 kg/m2 [facility] 08-23-2017 09:52-0500 Body Temperature 98.8 [degF] [facility] 08-23-2017 09:52-0500 BP Diastolic 86 mm[Hg] [facility] 08-23-2017 09:52-0500 BP Systolic 123 mm[Hg] [facility] 08-23-2017 09:52-0500 BSA (Body Surface Area) 1.78 m2 [facility] 08-23-2017 09:52-0500 Height 180.34 cm [facility] 08-23-2017 09:52-0500 Pulse (Heart Rate) 89 /min [facility] 08-23-2017 09:52-0500 Pulse Oximetry 99 % [facility] 08-23-2017 09:52-0500 Respiratory Rate 20 /min [facility] 08-23-2017 09:52-0500 Weight 63.22 kg [facility] Encounters Encounter Date Encounter Type Care Provider Facility Start: 10-30-2023 End: 10-30-2023 Office outpatient new 45 minutes Justin Coreas DO Work Phone: [facility] Comment on above: Umbilical hernia wit hout obstruction and without gangrene (Primary Dx); Cannabis use, uncomplicated Start: 09-16-2023 End: 09-16-2023 ambulatory [facility] Work Phone: Start: 09-16-2023 End: 09-16-2023 Patient encounter procedure [facility] Work Phone: Start: 07-18-2022 End: 07-18-2022 ambulatory Katie Garciamond Other [facility] [employer] Other Start: 07-18-2022 Office outpatient vi sit 15 minutes Katie Hugo [facility] Start: 07-20-2018 End: 07-20-2018 Emergency department patient visit [facility] Start: 01-15-2018 Behavioral Health Astrid mccain Other [facility] Start: 01-15-2018 Medical Abdi Black Other [facility] Start: 01-15-2018 Office outpatient vi sit 15 minutes Abdi Black Other [facility] Start: 10-09-2017 Behavioral Health Norm dupree Other [facility] Start: 10-09-2017 Office outpatient vi sit 15 minutes Abdi Black Other [facility] Start: 09-06-2017 Behavioral Health Norm dupree Other [facility] Start: 09-06-2017 Office outpatient vi sit 15 minutes Abdi Black Other [facility] Start: 08-23-2017 Behavioral Health Norm dupree Other [facility] Start: 08-23-2017 Office outpatient vi sit 15 minutes Abdi Black Other [facility] Procedures Date Procedure Procedure Detail Performing Clinician [...] Adult BMI Screening Adult BMI Screen ing [facility] Start: 10-29-2024 Tobacco Screening Tobacco Screening [facility] Start: 03-31-2024 Influenza vaccination Influenza Vacc ine [facility] Start: 10-30-2023 End: 10-29-2024 CT Abdomen and Pelvis W contrast IV CT abdomen and pelvis with contrast Imaging Routine Umbilical hernia without obstruction and without gangrene Expected: 10/30/2023, Expires: 10/29/2024 [facility] Comment on above: Expected: 10/30/2023 , Expires: 10/29/2024 Start: 2018 DTaP,Tdap and Td Vaccines (1 - Tdap) DTaP,Tdap and Td Vaccines (1 - Tdap) [facility] Start: 2011 Depression Screening Depression Scre ening [facility] End: 10-29-2024 CBC panel - Blood by Automated count CBC without diff Lab Routine Umbilical hernia without obstruction and without gangrene 1 Occurrences starting 10/30/2023 until 10/29/2024 [facility] Comment on above: 1 Occurrences starti ng 10/30/2023 until 10/29/2024 End: 10-29-2024 Unlisted [facility] Procedure Unlisted [facility] Procedure Procedures Routine Umbilical hernia without obstruction and without gangrene 1 Occurrences starting 10/30/2023 until 10/29/2024 [employer] Work Phone: Comment on above: 1 Occurrences starti ng 10/30/2023 until 10/29/2024 Payers Date Payer Category Payer Private Health Insurance [facility] PLUS [id number] 2023-[facility] [phone] [address] [address] [place] [address] [id number] 2023 Unknown [place] [id number] 2023-Present [phone] [address] [place] [address] [id number] 2017 Unknown [id number] Private Health Insurance [id number] Social History Date Type Detail Facility Start: [facility] Start: Never smoker Health Par Replaced by [facility] Start: 10-30-2023 Sex Assigned At N [facility] Other Start: 2000 Sex Assigned At Male F [facility] Start: 10-30-2023 Tobacco use and exposure Smokeless tobacco non-user [facility] Start: 10-30-2023 Alcohol intake Ex-drinker (finding) [facility] Start: 10-30-2023 History of Social function [facility] Within the past 12 months we worried whether our food would run out before we got money to buy more. Never True [facility] Start: 2000 Sex Assigned At Not on file P [facility] History of Present illness Narrative 10-30-2023 Justin Coreas, DO - 10/30/2023 9:30 AM EDT Note Date & Type Note Facility 10-30-2023 History of Present illness Narrative Images from the original note were not included. [facility] [address] [facility] [phone] CONSULT NOTE Erwin Vega 23 y.o. CHIEF COMPLAINT Chief Complaint Patient presents with Hernia Umbilical hernia, [facility] ER 10/16/23 Erwin Vega is a 23-year-old male who presents to the office with complaints of an umbilical hernia diagnosed when he went to the ED at the [facility] on October 15. 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 [...] patient/family/caregiver Referring and communicating with other health home care provider Umbilical hernia without obstruction and without gangrene [...] for your understanding. documented in this encounter [facility] Note 10-30-2023 Addendum Note - Justin Coreas DO - 10/30/2023 9:30 AM EDT Note Date & Type Note Facility 10-30-2023 Miscellaneous Notes Addended by: JUSTIN COREAS on: 10/30/2023 12:51 PM Modules accepted: Orders documented in this encounter [facility] Clinical Note 10-30-2023 Addendum Note - Justin Coreas DO - 10/30/2023 9:30 AM EDT Note Date & Type Note Facility 10-30-2023 Note Addended by: JUSTIN COREAS on: 10/30/2023 12:51 PM Modules accepted: Orders [facility] Evaluation note 07-18-2022 Note Date & Type [...] the onset of your symptoms of influenza. [email or web address] Other Evaluation note Note Date & Type Note Facility Evaluation note Diagnosis Onset Date Impacted cerumen, right ear acute Right otitis externa acute Right otitis media acute [facility] Work Phone: Evaluation note Note Date & Type Note Facility Evaluation note Diagnosis Umbilical hernia without obstruction and without gangrene- Primary Cannabis use, uncomplicated documented in this encounter [facility] History general Narrative - Reported Note Date & Type Note Facility History general Narrative - Reported Type Medical History anxiety [email or web address] Other Instructions Note Date & Type Note [...] pelvis with contrast Justin Coreas, DO [address] [place] [address] Referral ID Status Reason Start Date Expiration Date V isits Requested Visits Authorized [id number] Pending Review 10/30/2023 10/29/2024 1 1 Specialty Diagnoses / Procedures Referred By Contac t Referred To Contact Diagnoses Umbilical hernia without obstruction and without gangrene Procedures Unlisted [facility] Procedure Justin Coreas, DO [address] [place] [address] Referral ID Status Reason Start Date Expiration Date V isits Requested Visits Authorized [id number] Pending Review 10/30/2023 10/29/2024 1 1 Additional [...] BE BASED ON THE PRIMARY CLINICAL RECORDS. [employer] provides no warranty or guarantee of the accuracy or completeness of information in this document.
[2023-11-15] MEDS: LACTATED RINGER'S SOLUTION 1,000 ML 50 ML IV (06:39)
--- NOTE | 2023-11-15 07:07 | PM.GSPRC ---
Date of procedure: 11/15/23 Indications for Procedure: symptomatic umbilical hernia Pre-op diagnosis: umbilical hernia and ventral hernia Post-op diagnosis: same as pre-op Procedure: robotic davinci umbilical hernia and ventral repair with mesh(9 cm) Findings: 1/2 cm umbilical hernia and 2 cm ventral hernia Anesthesia: HOLLANDA Surgeon: Marciano Goode Procedure Summary: Operative Note: Name: @NAME@ MRN: @MRN@ Procedure Date: @TD@ OR Staff: @ORSSTAFF@ Anesthesia Staff: @ANSTAFF@ Pre-Operative Diagnosis: @ORPREDX@ Post-Operative Diagnosis: @ORPOSTDX@ Procedure: Robotic?assisted laparoscopic umbilical?hernia repair with mesh placement Surgeon: @KAYLEE@ Resident: @ME@ Anesthesia: ?@ORANEST@ EBL: {ebl:52689} IVF: mL crystalloid UOP: {Blank single:24586:: mL , not recorded } Specimens: None Complications: ?None Findings: Indications: Erwin Vega is a 23-year-old male who presented and was found to have a umbilical herniaand a small ventral hernia. We offered the patient a robotic umbilical hernia repair. After a thorough explanation of the risks, benefits, and alternatives the patient agreed to proceed with the operation. Procedure in Detail: After again explaining the risks and benefits of the procedure in the preoperative care unit consent was obtained.? The patient was taken back to the operative room and placed on the operative room table. After undergoing general endotracheal anesthesia, preoperative antibiotics were given.? Appropriate time-out was performed.? Right arm was tucked at the side.? Then the bed was a positioned appropriately.? The abdomen was prepped and draped in normal sterile fashion. We entered the abdomen in the left upper quadrant utilizing a 5 mm Visiport.? We began insufflation at low-flow patient tolerated this insufflation of the abdomen was then increased to 15 mmHg.? 2 additional 8 mm robotic trocars placed along the left lateral abdomen under direct visualization. The 5 mm port was then upsized to an 8 mm robotic trocar. The robotic scope and camera were brought in. The [employer] robot was docked. At this point began with taking down the adhesions to the anterior abdominal wall, in the location of the hernia. The fascia was freed up from the preperitoneal fat. The fascia was reapproximated using 0 V-lock suture.there were two defects 0.5 cm for the umbilical hernia and lateral to that on the right side was a 2 cm defect and both were closed with 0 black suture. The abdomen was deinsufflated to 8 mmHg to allow adequate closure of the fascia, under no tension. At this time we brought in an appropriately sized piece of mesh as listed above and sutured in place circumferentially with 2-0 V-lock. Once we were happy with mesh placement, the abdomen was desufflated.? Skin was reapproximated with interrupted 4-0 Monocryl.? Steri-Strips were placed over all skin incisions. Sponge, lap, and instrument counts were correct x2 at the end of the procedure. The patient tolerated the procedure well, was extubated in the operating room, and taken to the PACU in excellent condition. ? Internet Security Specialist: TODD Maher Estimated blood loss (mL): 2 Specimens: none Complications: No Pathology: none sent Condition: stable Disposition: PACU
[2023-11-15] MEDS: CEFAZOLIN SODIUM/DEXTROSE,ISO 2 GM/50 ML PIGGYBACK IV (07:33)
[2023-11-15] MEDS: DEXAMETHASONE SOD PHOS (PF) 10 MG/ML VIAL INJ (09:20)
[2023-11-15] MEDS: ROPIVACAINE HCL 20 MG INJ (09:20)
[2023-11-15] MEDS: OXYCODONE HCL/ACETAMINOPHEN 5MG/325MG 1 TAB PO (10:40)
== END 2023-11-15 11:05 | disposition home or self-care (01) ==
PROVIDERS: Family Provider Family Medicine; Visit Provider Surgery
PROC: (CPT 832; principal; 2023-11-15 07:30)
DX: K42.9 Umbilical hernia without obstruction or gangrene (principal); K43.9 Ventral hernia without obstruction or gangrene; F41.1 Generalized anxiety disorder
CPT/HCPCS: 49591; 36415; 64488; C1781; J1094; J2704

== ENCOUNTER 2024-10-23 05:19 | Emergency (ER) | payer BC, OTHER, SELFPAY ==
[2024-10-23 05:22] VITALS: BP 129/87; PULSE 79; TEMP 36.4; O2SAT 99; BMI 19.9
--- OUTSIDE RECORDS SUMMARY | 2024-10-23 05:24 | XMS_ITS | CCD ---
Author Organization [facility] Care Team Providers Care Tram Inspector Name Role Phone Astrid Gloria Unavailable Unavailable Trausch Unavailable Unavailable Abdi Black Unavailable Unavailable Katie Hugo Unavailable No Pcp, No Pcp Primary Care Provider Unavailabl e Unavailable Primary Care Provider Unavailabl e Allergies Allergy Classification Reported Allergen(s) Allergy Type Date of Onset Reaction(s) Facility (3 sources) Cat Allergy to substance (disorder) [facility] Work Phone: (3 sources) Dog Allergy to substance (disorder) [facility] Work Phone: (3 sources) -No Environmental Allergies Allergy to substance (disorder) [facility] Work Phone: (3 sources) -No Known Food Allergies Allergy to substance (disorder) [facility] Work Phone: (3 sources) NO KNOWN DRUG ALLERGIES Allergy to substance (disorder) [facility] Work Phone: Medications Current Medications Medication Drug Class(es) Dates Sig (Normalized) Sig (Original) amoxicillin 500 mg oral capsule (1 source) Penicillin-class Antibacterial Start: 09-16-2023 take 500 mg by mouth three times daily Amoxicillin Active 500 MG PO Three times daily 30 September 16, 2023 12:00am cetirizine hydrochloride 10 mg oral tablet (4 sources) Histamine-1 Receptor Antagonist take 1 tablet by mouth once daily as needed cetirizine (ZyrTEC) 10 mg tablet Take 1 tablet (10 mg total) by mouth daily as needed for allergies. Active hydrocortisone 10 mg/ml / neomycin 3.5 mg/ml / polymyxin b 67409 unt/ml otic suspension (1 source) Aminoglycoside Antibacterial, Polymyxin-class Antibacterial, Corticosteroid Start: 09-16-2023 Neomycin-Polymyx in-Hc Active 3 DROPS OTIC Three times daily September 16, 2023 12:00am right ear Completed/Discontinued Medications Medication Drug Class(es) Dates Sig (Normalized) Sig (Original) dexamethasone 1 mg/ml / neomycin 3.5 mg/ml / polymyxin b 62960 unt/ml ophthalmic suspension (2 sources) Aminoglycoside Antibacterial, [...] nostril by intranasal route once daily Problems Active Problems Problem Classification Problem Date Documented Date Episodic/Chronic Anxiety disorders (3 sources) Generalized anxiety disorder; [...] [Otitis media, unspecified, right ear] 09-16-2023 Episodic Past or Other Problems Problem Classification Problem Date Documented Da te Episodic/Chronic Abdominal hernia (3 sources) Umbilical hernia; Translations: [Umbilical hernia without obstruction or gangrene] 11-28-2023 Episodic Substance-related disorders (1 source) Cannabis misuse; Translations: [Cannabis use, unspecified, uncomplicated] 10-30-2023 Episodic Results Test Name Value Interpretation Reference Range Facil ity Unlisted [facility]on 11-15-2023 [email or web address] [facility] Multiple labsOrdered By: Sherrie Goodman on 11-08-2023 [employer] [facility] COVID/FLU RT-PCRon SARS-CoV-2 (COVID-19) RNA NENO+probe Ql (Unsp spec) Negative [employer] Other COVID/FLU RT-PCR Positive [employer] Other COVID/FLU RT-PCR Negative [employer] Other Otheron 01-15-2018 0= N/A Invalid Interpretation Code [facility] ([employer]) [facility] 0=No Invalid Interpretation Code [facility] ([employer]) [facility] 0-N/A Invalid Interpretation Code [email or web address] [facility] 1=Controlled Invalid Interpretation Code [facility] ([employer]) [facility] reducing depressed mood Invalid Interpretation Code [facility] ([employer]) [facility] 0 Invalid Interpretation Code [facility] 1 Invalid Interpretation Code [facility] Risk Level 1=3 or < Invalid Interpretation Code [facility] Otheron 10-09-2017 1 Invalid Interpretation Code [facility] Vital Signs Date Time Vital Sign Value Performing Clinician Facility 11-28-2023 13:31-0400 Body height 172.7 cm Justin Coreas DO Work Phone: [facility] [email or web address] [facility] 11-28-2023 13:31-0400 Body mass index (BMI) [Ratio] 19.52 kg/m2 Justin Coreas DO Work Phone: [facility] 11-28-2023 13:31-0400 Body weight 58.24 kg Justin Coreas DO Work Phone: [facility] [email or web address] [facility] 11-28-2023 13:31-0400 Diastolic blood pressure 76 mm[Hg] Justin Coreas DO Work Phone: [facility] [email or web address] [facility] 11-28-2023 13:31-0400 Heart rate 68 /min Justin Coreas DO Work Phone: [facility] [email or web address] [facility] 11-28-2023 13:31-0400 Systolic blood pressure 128 mm[Hg] Justin Coreas DO Work Phone: [facility] [email or web address] [facility] 10-30-2023 09:25-0400 Body height 172.7 cm Justin Coreas DO Work Phone: [facility] [email or web address] [facility] 10-30-2023 09:25-0400 Body mass index (BMI) [Ratio] 19.55 kg/m2 [facility] 10-30-2023 09:25-0400 Body weight 58.33 kg Justin Coreas DO Work Phone: [facility] [email or web address] [facility] 10-30-2023 09:25-0400 Diastolic blood pressure 77 mm[Hg] Justin Coreas DO Work Phone: [facility] 10-30-2023 09:25-0400 Heart rate 78 /min Justin Coreas DO Work Phone: [facility] 10-30-2023 09:25-0400 Systolic blood pressure 116 mm[Hg] Justin Coreas DO Work Phone: [facility] 09-16-2023 10:54-0500 Body height 172.72 cm [facility] 09-16-2023 10:54-0500 Body mass index (BMI) [Ratio] 20.5 kg/m2 [facility] 09-16-2023 10:54-0500 Body temperature 97.3 [degF] [facility] 09-16-2023 10:54-0500 Body weight 61.23 kg [facility] 09-16-2023 10:54-0500 Heart rate 68 /min [facility] 09-16-2023 10:54-0500 Respiratory rate 18 /min [facility] 09-16-2023 10:54-0500 SaO2% (BldA) [Mass fraction] 99 % [facility] 07-18-2022 14:45-0500 Body height 175.26 cm Katie Hugo Other [employer] [facility] [employer] Other 07-18-2022 14:45-0500 Body mass index (BMI) [Ratio] 19.2 kg/m2 Katie Hugo Other [employer] Other 07-18-2022 14:45-0500 Body temperature 99.7 [degF] Katie Hugo Other [employer] Other 07-18-2022 14:45-0500 Body weight 58.97 kg Katie Hugo Other [employer] Other 07-18-2022 14:45-0500 Diastolic blood pressure 56 mm[Hg] Katie Hugo Other [employer] Other 07-18-2022 14:45-0500 Respiratory rate 20 /min Katie Hugo Other [employer] Other 07-18-2022 14:45-0500 SaO2% (BldA) [Mass fraction] 99 % Katie Hugo Other [employer] Other 07-18-2022 14:45-0500 Systolic blood pressure 95 mm[Hg] Katie Hugo Other [employer] Other 01-15-2018 10:06-0400 BMI (Body Mass Index) 20.01 kg/m2 [facility] 01-15-2018 10:06-0400 Body Temperature 98.7 [degF] [facility] 01-15-2018 10:06-0400 BP Diastolic 84 mm[Hg] [facility] 01-15-2018 10:06-0400 BP Systolic 124 mm[Hg] [facility] 01-15-2018 10:06-0400 BSA (Body Surface Area) 1.81 m2 [facility] 01-15-2018 10:06-0400 Height 180.34 cm [facility] 01-15-2018 10:06-0400 Pulse (Heart Rate) 110 /min [facility] 01-15-2018 10:06-0400 Pulse Oximetry 99 % [facility] 01-15-2018 10:06-0400 Respiratory Rate 18 /min [facility] 01-15-2018 10:06-0400 Weight 65.09 kg [facility] 10-09-2017 10:10-0400 BMI (Body Mass Index) 19.11 kg/m2 [facility] 10-09-2017 10:10-0400 Body Temperature 98.3 [degF] [facility] 10-09-2017 10:10-0400 BP Diastolic 68 mm[Hg] [facility] 10-09-2017 10:10-0400 BP Systolic 110 mm[Hg] [facility] 10-09-2017 10:10-0400 BSA (Body Surface Area) 1.76 m2 [facility] 10-09-2017 10:10-0400 Height 180.34 cm [facility] 10-09-2017 10:10-0400 Pulse (Heart Rate) 82 /min [facility] 10-09-2017 10:10-0400 Pulse Oximetry 98 % [facility] 10-09-2017 10:10-0400 Respiratory Rate 18 /min [facility] 10-09-2017 10:10-0400 Weight 62.14 kg [facility] 09-06-2017 09:02-0500 BMI (Body Mass Index) 18.69 kg/m2 [facility] 09-06-2017 09:02-0500 Body Temperature 99.4 [degF] [facility] 09-06-2017 09:02-0500 BP Diastolic 88 mm[Hg] [facility] 09-06-2017 09:02-0500 BP Systolic 138 mm[Hg] [facility] 09-06-2017 09:02-0500 BSA (Body Surface Area) 1.74 m2 [facility] 09-06-2017 09:02-0500 Height 180.34 cm [facility] 09-06-2017 09:02-0500 Pulse (Heart Rate) 118 /min [facility] 09-06-2017 09:02-0500 Pulse Oximetry 95 % [facility] 09-06-2017 09:02-0500 Respiratory Rate 20 /min [facility] 09-06-2017 09:02-0500 Weight 60.78 kg [facility] 08-23-2017 09:52-0500 BMI (Body Mass Index) 19.44 kg/m2 [facility] 08-23-2017 09:52-0500 Body Temperature 98.8 [degF] [facility] 08-23-2017 09:52-0500 BP Diastolic 86 mm[Hg] [facility] 08-23-2017 09:52-0500 BP Systolic 123 mm[Hg] [facility] 08-23-2017 09:52-0500 BSA (Body Surface Area) 1.78 m2 [facility] 08-23-2017 09:52-0500 Height 180.34 cm [facility] 08-23-2017 09:52-0500 Pulse (Heart Rate) 89 /min [facility] 08-23-2017 09:52-0500 Pulse Oximetry 99 % [facility] 08-23-2017 09:52-0500 Respiratory Rate 20 /min [facility] 08-23-2017 09:52-0500 Weight 63.22 kg [facility] Encounters Encounter Date Encounter Type Care Provider Facility Start: 11-29-2023 End: 11-29-2023 Orders Only [facility] Comment on above: Umbilical hernia wit hout obstruction and without gangrene Start: 11-28-2023 End: 11-28-2023 Postop follow up visit related to original px Justin Coreas DO Work Phone: [facility] Comment on above: Umbilical hernia wit hout obstruction and without gangrene (Primary Dx) Start: 11-10-2023 End: 11-10-2023 Orders Only Not In System Ref Prov [facility] Start: 10-30-2023 End: 10-30-2023 Office outpatient new 45 minutes Justin Coreas DO [facility] Comment on above: Umbilical hernia wit hout obstruction and without gangrene (Primary Dx); Cannabis use, uncomplicated Start: 09-16-2023 End: 09-16-2023 ambulatory [facility] Work Phone: Start: 09-16-2023 End: 09-16-2023 Patient encounter procedure [facility] Work Phone: Start: 07-18-2022 End: 07-18-2022 ambulatory Katie Hugo Other [facility] [employer] Other Start: 07-18-2022 Office outpatient vi sit 15 minutes Katie Hugo [facility] Start: 07-20-2018 End: 07-20-2018 Emergency department patient visit [facility] Start: 01-15-2018 Behavioral Health Astrid Romero Other [facility] Start: 01-15-2018 Medical Abdi Black Other [facility] Start: 01-15-2018 Office outpatient vi sit 15 minutes Sandrake Wayne Other [facility] Start: 10-09-2017 Behavioral Health Norm dupree Other [facility] Start: 10-09-2017 Office outpatient vi sit 15 minutes Sandrake Wayne Other [facility] Start: 09-06-2017 Behavioral Health Norm dupree Other [facility] Start: 09-06-2017 Office outpatient vi sit 15 minutes Luke Wayne Other [facility] Start: 08-23-2017 Behavioral Health Norm dupree Other [facility] Start: 08-23-2017 Office outpatient vi sit 15 minutes Luke Wayne Other [facility] Procedures Date Procedure Procedure Detail Performing Clinician Start: 11-15-2023 UNLISTED NON-PROMEDI CA PROCEDURE Justin Coreas DO Work Phone: Start: 11-08-2023 MULTIPLE LABS Not In Sy stem Ref Prov Start: 07-20-2018 LACERATION REPAIR Start: 01-15-2018 PHQ9 Administered Radha Gloria Start: 01-15-2018 Psychotherapy w/joana ent 30 minutes Astrid Shaheedabeba Start: 01-15-2018 SBIRT Negative Astrid jimenez Start: 10-09-2017 Psychotherapy w/joana ent 30 minutes Astrid Juani Start: 10-09-2017 Pt-focused hlth risk assmt score doc stnd instrm Astrid Hummelabeba Start: 09-06-2017 Psychotherapy w/joana ent 30 minutes Astrid Gloria Start: 08-23-2017 Psychotherapy w/joana ent 30 minutes Astrid Gloria Start: 08-23-2017 End: 08-23-2017 PHQ9 Administered Astrid Gloria Start: 08-23-2017 End: 08-23-2017 RAYOSEF Gloria Plan of Treatment Date Care Activity Detail Author Start: 11-27-2024 Adult BMI Screening Adult BMI Screen ing [facility] Start: 11-27-2024 Tobacco Screening Tobacco Screening [facility] Start: 10-29-2024 Adult BMI Screening Adult BMI Screen ing [facility] Start: 10-29-2024 Tobacco Screening Tobacco Screening [facility] Start: 03-31-2024 Influenza vaccination Influenza Vacc ine [facility] Start: 11-29-2023 End: 11-29-2023 Patient encounter procedure 11/29/2023 2:15 PM EDT Office Visit [facility] [address] [place] [address] [phone] Justin Coreas, DO [address] [place], [place] [phone] [facility] Start: 11-15-2023 End: 11-15-2023 Patient encounter procedure 11/15/2023 9:00 AM EDT Office Visit [facility] [address] [place] [address] [phone] Justin Coreas DO [address] [place], [place] [phone] [facility] Start: 10-30-2023 End: 10-29-2024 CT Abdomen and Pelvis W contrast IV CT abdomen and pelvis with contrast Imaging Routine Umbilical hernia without obstruction and without gangrene Expected: 10/30/2023, Expires: 10/29/2024 [facility] Comment on above: Expected: 10/30/2023 , Expires: 10/29/2024 Start: 2018 DTaP,Tdap and Td Vaccines (1 - Tdap) DTaP,Tdap and Td Vaccines (1 - Tdap) [employer] Start: 2011 Depression Screening Depression Scre ening [employer] End: 10-29-2024 CBC panel - Blood by Automated count CBC without diff Lab Routine Umbilical hernia without obstruction and without gangrene 1 Occurrences starting 10/30/2023 until 10/29/2024 [employer] Comment on above: 1 Occurrences starti ng 10/30/2023 until 10/29/2024 End: 10-29-2024 Unlisted [facility] Procedure Unlisted [facility] Procedure Procedures Routine Umbilical hernia without obstruction and without gangrene 1 Occurrences starting 10/30/2023 until 10/29/2024 [facility] Work Phone: Comment on above: 1 Occurrences starti ng 10/30/2023 until 10/29/2024 Payers Date Payer Category Payer Private Health Insurance [facility] [id number] 2023-Present [phone] [address] [address] [place] [address] [id number] 2023 Unknown [employer] [place]/PPO/TRUST [id number] 2023-Present [phone] [address] [place] [address] [id number] 2017 Unknown [id number] Private Health Insurance [id number] Social History Date Type [facility]ail [facility] Start: 10-30-2023 End: 11-28-2023 Sex Assigned At [facility] Other Start: 2000 Sex Assigned At Male [facility] Start: 10-30-2023 Tobacco use and exposure Smokeless tobacco non-user [facility] Start: 11-28-2023 Alcoholic beverage intake Lifetime non-drinker (finding) [facility] Start: 10-30-2023 End: 11-28-2023 History of Social function [facility] Within the past 12 months we worried whether our food would run out before we got money to buy more. Never True [facility] [email or web address] [facility] Start: 2000 Sex assigned at Not on file P [facility] Start: 10-30-2023 Alcohol intake Ex-drinker (finding) [facility] Clinical Notes 07-18-2022 to 11-28-2023 Justin Coreas DO - 11/28/2023 1:30 PM EDTMichgagan Coreas DO - 10/30/2023 9:30 AM EDTAddendum Note - Justin Coreas DO - 10/30/2023 9:30 AM EDT Note Date & Type Note Facility 11-28-2023 History of Presen t illness Narrative Post robotic umbilical hernia repair with mesh at [facility]. No complaints. Patient taking oral gummies delta 8 for pain p.r.n.. Patient has no complaints. Abdomen soft nontender wound clean dry and intact. Refrain from lifting greater than 5 lb for 1 more month and he is scheduled to go back on the . He may follow up p.r.n.. documented in this encounter [facility] 10-30-2023 History of Presen t illness Narrative Images from the original note were not included. [facility] [phone] CONSULT NOTE Erwin Vega 23 y.o. CHIEF COMPLAINT Chief Complaint Patient presents with Hernia Umbilical hernia, [facility] ER 10/16/23 Erwin Vega is a 23-year-old male who presents to the office with complaints of an umbilical hernia diagnosed when he went to the ED at the [facility] on October 15. 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 [...] patient/family/caregiver Referring and communicating with other health assisted living care manager Umbilical hernia without obstruction and without gangrene [...] for your understanding. documented in this encounter [facility] 10-30-2023 Miscellaneous Notes Addended by: JUSTIN COREAS on: 10/30/2023 12:51 PM Modules accepted: Orders documented in this encounter [facility] 10-30-2023 Note Addended by: JUSTIN COREAS on: 10/30/2023 12:51 PM Modules accepted: Orders [facility] 07-18-2022 Evaluation note Encounter Date Diagnosis Assessment [...] the onset of your symptoms of influenza. [employer] Other Evaluation note* Diagnosis Onset Date Resolution Status Impacted cerumen, right ear acute Right otitis externa acute Right otitis media [facility] Work Phone: Evaluation note* Diagnosis Umbilical hernia without obstruction and without gangrene- Primary [facility] Diagnosis Umbilical hernia without obstruction and without gangrene [facility] Diagnosis Umbilical hernia without obstruction and without gangrene- Primary Cannabis use, uncomplicated documented [facility] N[facility]ative - Reported* Type Description Date Medical History anxiety [employer] Other InstructionsNot on filedocumented in this encounter [facility] filedocumented in this encounter [facility] on filedocumented in this encounter [facility] on filedocumented in this [facility] History of Past Illness Name [...] Referral Specialty Diagnoses / Procedures Referred By Shanell t Referred To Contact Diagnoses Umbilical hernia without obstruction and without gangrene Procedures CT abdomen and pelvis with contrast Justin Coreas, DO [address] [place] [address] Referral ID Status Reason Start Date Expiration Date V isits Requested Visits Authorized [id number] Pending Review 10/30/2023 10/29/2024 1 1 Specialty Diagnoses / Procedures Referred By Contperfecto t Referred To Contact Diagnoses Umbilical hernia without obstruction and without gangrene Procedures Unlisted [facility] Procedure Justin Coreas, DO [address] [place] [address] Referral ID Status Reason Start Date Expiration Date V isits Requested Visits Authorized [id number] Pending Review 10/30/2023 10/29/2024 1 1 Additional Source Comments (unrecognized sect ion and content) No Status Records Found INFORMATION SOURCE (unrecogn ized section and content) DATE CREATED AUTHOR 07/24/2018 Sophia Ortega April zohrake REASON FOR VISIT (unrecogniz ed section and content) Reason Comments Post-op Post op davinci umbi lical hernia repair performed 11/15/23 at [facility] Reason Comments Hernia Umbilical hernia, TB H [...] September 16, 2023 End: September 16, 2023 Tram Inspector Relationship Specialty Start Date End Date No Pcp, [place] [address] PCP - General Family Medicine 11/28/23 Tram Inspector Relationship Specialty Start Date End Date No Pcp, [place] [address] PCP - General Family Medicine 11/28/23 Goals (unrecognized section and content) Goals may [...] BE BASED ON THE PRIMARY CLINICAL RECORDS. [facility], [facility]. provides no warranty or guarantee of the accuracy or completeness of information in this document.
--- NOTE | 2024-10-23 05:33 | ED.URI1 ---
HPI - URI/Sore Throat General Chief Complaint: Upper Respiratory Infection Stated Complaint: COUGH Time Seen by Provider: 10/23/24 05:26 Source: patient Limitations: no limitations History of Present Illness HPI Narrative: This 24-year-old male presents for evaluation of cough with clear phlegm. The patient states he feels like his left lung has a puddle of mucus and it. He states that he smokes marijuana but not after 5 PM so will not keep him from smoking because of his cough however does not often work. He states he has been coughing so hard that he is almost vomited. He denies any dizziness or syncope but states after a coughing spell he feels lightheaded. He has had similar symptoms in the past. He has not had any fever. He denies any sore throat or runny nose. He has no abdominal pain. He has no lower extremity pain or swelling. He states it feels like he cannot get enough air in the left lung and it cannot get out when he does get air in it. He denies a history of asthma but states there was some talk about it when he was younger after a black mold incident. Related Data Home Medications ?Medication ?Instructions ?Recorded ?Confirmed No Known Home Medications 10/23/24 10/23/24 Allergies Allergy/AdvReac Type Severity Reaction Status Date / Time No Known Drug Allergies Allergy Verified 10/23/24 05:27 Review of Systems ROS Status of ROS 10 or more systems reviewed and unremarkable except as noted in history and below [facility] Medical History (Updated 10/23/24 @ 06:37 by Macy More MD) Anxiety ?F41.9 - Anxiety disorder, unspecified (ICD-10) Umbilical hernia ?K42.9 - Umbilical hernia without obstruction or gangrene (ICD-10) Surgical History (Updated 11/08/23 @ 14:41 by Haily Tracy NP) History of root canal procedure ?Z98.890 - Other specified postprocedural states (ICD-10) Family History (Updated 11/08/23 @ 14:41 by Haily Tracy NP) Other Cancer Family history of diabetes mellitus Family history of hypertension Syncopal episodes Social History (Updated 11/08/23 @ 14:38 by Haily Tracy NP) Within the past year, how often did you have a drink containing alcohol: never Score interpretation: A score less than 4 is consistent with normal alcohol consumption. Smoking status: Never smoker Non-prescribed substance use: cannabis (any form) Previous occupational history: factory Highest level of school completed/degree received: some college, no degree Little interest or pleasure in doing things: not at all Feeling down, depressed, or hopeless: not at all Exam Narrative Exam Narrative: Vital signs and Nursing Notes reviewed: Patient is afebrile with a normal pulse, normal blood pressure, he is not hypoxic with pulse ox of 99% on room air General: Awake, alert, oriented, no acute distress, lying comfortably on the stretcher, speech is clear, no respiratory distress, occasional harsh cough noted HEENT: Normocephalic atraumatic, mucous membranes are moist and pink, eyes are clear, normal conjunctiva, vision is grossly intact, posterior pharynx is normal in appearance with clear postnasal drip Neck: Supple, no meningeal signs, no anterior or posterior cervical lymphadenopathy Chest: Lungs are clear to auscultation with good air entry, there is no wheezing rhonchi or rales appreciated no accessory muscle use, patient is speaking in complete sentences-no chest wall tenderness to palpation CVS: Regular rate and rhythm S1-S2, no murmurs rubs or gallops, pulses are brisk and equal bilaterally ABD: Soft, nondistended, nontender, no rebound guarding or rigidity, bowel sounds are normal, no pulsatile masses appreciated Extremities: Moving all extremities, no lower extremity tenderness or swelling noted Skin: Normal in appearance without rash,pallor, petechiae or purpura Neuro: No focal deficits Constitutional Vital Signs, click to edit/add: Last Vital Signs Temp 97.6 F 10/23/24 05:22 Pulse 79 10/23/24 05:22 Resp 18 10/23/24 05:22 BP 129/87 10/23/24 05:22 Pulse Ox 99 10/23/24 05:37 O2 Del Method Room Air 10/23/24 05:37 Course Vital Signs Vital signs: Vital Signs Temperature 97.6 F 10/23/24 05:22 Pulse Rate 79 10/23/24 05:22 Respiratory Rate 18 10/23/24 05:22 Blood Pressure 129/87 10/23/24 05:22 Pulse Oximetry 99 10/23/24 05:22 Oxygen Delivery Method Room Air 10/23/24 05:22 Temperature 97.6 F 10/23/24 05:22 Pulse Rate 79 10/23/24 05:22 Respiratory Rate 18 10/23/24 05:22 Blood Pressure 129/87 10/23/24 05:22 Pulse Oximetry 99 10/23/24 05:37 Oxygen Delivery Method Room Air 10/23/24 05:37 MDM - URI/Sore Throat MDM Narrative Medical decision making narrative: This 24-year-old male presents for evaluation of cough and a sensation that he has a puddle of mucus in his left lung. His symptoms started this morning. He states he has coughed so hard that he almost vomited. He admits to smoking marijuana but not after 5 PM so that it does not keep him up or make him cough while he is trying to sleep. The patient's vital signs are stable with a normal pulse ox. His lungs are clear. There is no wheezing rhonchi or rales. He is speaking complete sentences. He does have postnasal drip. He was tested for influenza and COVID-19 and is positive for COVID. Two-view chest x-ray was reviewed by myself and does not show any acute pulmonary infiltrate, normal cardiac borders are noted with normal mediastinum and normal bony structures. He will be discharged home with a note for work to quarantine for 5 days, prescription for Bromfed-DM and albuterol and he is agreeable to taking Paxlovid. Lab Data Labs: Lab Results 10/23/24 Range/Units 05:30 Influenza Type A Ag Negative Influenza Type B Ag Negative SARS-CoV-2 Ag (CV2AG) Positive A (NEGATIVE) Discharge Plan Discharge Chief Complaint: Upper Respiratory Infection Clinical Impression: Upper respiratory infection, COVID-19 Patient Disposition: Home, Self-Care Time of Disposition Decision: 06:37 Condition: Good Prescriptions / Home Meds: No Action No Known Home Medications Print Language: Mongolian Instructions: Droplet Precautions (ED), COVID-19 (Coronavirus Disease 2019) (ED), How to Recover from COVID-19 at Home (ED) Referrals: Physician,Non-Staff, [Primary Care Provider] - 1 week
[2024-10-23 05:37] VITALS: O2SAT 99
[2024-10-23 05:50] LABS: Influenza Virus A Antigen Negative; Influenza Virus B Antigen Negative; Internal Control Within Normal Limits; SARS-CoV-2 Ag POSITIVE (NEGATIVE)
== END 2024-10-23 06:47 | disposition home or self-care (01) ==
PROVIDERS: Emergency Provider Emergency Medicine; Family Provider Family Medicine
DX: U07.1 COVID-19 (principal); J06.9 Acute upper respiratory infection, unspecified
CPT/HCPCS: 71046; 87804; 87811; 99284